=== PATIENT | female | born 1960 | race Caucasian/White ===

== ENCOUNTER 2017-08-22 05:04 | Emergency (ER) | payer MEDICAID ==
[~2017-08-22] VITALS: Ht 162.6 cm; Wt 143.8 kg
[~2017-08-22 05:04] MED LIST: ALBU0.5N2; ALPR2TAB2; AMLODIPINE BENAZEP PO; ASPI-247 PO; ASPI81CH43 GT; ATEN50TA PO; BUPR-40 PO; CARI-277 PO; CLOP75TA41 PO; FENO5TAB PO; FLUT250M2; GABA100C PO; IBUP200T2 PO; INSUINJ SC; METF1000 PO; NOR10T PO; NOVOLOG 70/30 SC; OMEP20TA44 PO; PANT1INJ3 IV; SUCR1TAB38 OR; VYTORIN 10/40 PO; ZOLP12.52 PO
[2017-08-22 05:13] VITALS: BP 143/73
[2017-08-22] MEDS ORDERED: SODIUM CHLORIDE 0.9% 1,000 ML IV ONE (06:38)
[2017-08-22] MEDS ORDERED: KETOROLAC TROMETH 60MG/2ML VIAL IM ONE (06:45)
[2017-08-22] MEDS ORDERED: KETOROLAC TROMETH 30 MG/ML 1ML VIAL IV ONE (07:00)
[2017-08-22 08:03] LABS: Basophils # (auto) 0.1 uL; Nucleated Red Blood Cells % 0.1 %
[2017-08-22 08:05] LABS: Basophils % (auto) 0.7 % (0.0-2.0); Eosinophils # (auto) 0.5 uL; Eosinophils % (auto) 4.9 % (0.0-7.0); Hematocrit 38.2 % (36.0-46.0); Hemoglobin 12.5 g/dL (12.2-16.2); Lymphocytes # (auto) 2.5 uL; Lymphocytes % (auto) 24.7 % (10.0-50.0); Mean Corpuscular Hemoglobin 27.2 pg (28.0-32.0); Mean Corpuscular Hgb Conc. 32.8 g/dL (32.0-36.0); Mean Corpuscular Volume 83.1 fL (80.0-100.0); Monocytes % (auto) 10.1 % (0.0-12.0); Neutrophils % (auto) 59.6 % (37.0-80.0); Platelet Count (auto) 361 10^3/uL (140-450); Red Cell Distribution Width 14.2 % (11.8-14.3); White Blood Cell 10.1 10^3/uL (4.4-10.8)
[2017-08-22 08:08] LABS: Partial Thromboplastin Time 26.5 sec (22.64-33.71); Prothrombin Time 10.9 sec (9.37-12.3)
[2017-08-22 08:35] LABS: Albumin 3.5 g/dL (3.4-5.0); BUN/Creatinine Ratio 15.5; Bilirubin, Total 0.3 mg/dL (0.2-1.0); Calcium 8.5 mg/dL (8.5-10.1); Potassium 5.1 mmol/L (3.5-5.1); Total Protein 7.4 g/dL (6.4-8.2)
== END 2017-08-22 08:39 | disposition home or self-care (01) ==
LOC: ER 05:05
DX: S39.012A Strain of muscle, fascia and tendon of lower back, initial encounter (principal); J45.909 Unspecified asthma, uncomplicated; E11.9 Type 2 diabetes mellitus without complications; I25.10 Atherosclerotic heart disease of native coronary artery without angina pectoris; K21.9 Gastro-esophageal reflux disease without esophagitis; E78.5 Hyperlipidemia, unspecified; I10 Essential (primary) hypertension; I25.2 Old myocardial infarction; G51.0 Bell's palsy; E66.01 Morbid (severe) obesity due to excess calories; G89.29 Other chronic pain; Z68.43 Body mass index [BMI] 50.0-59.9, adult; Z79.82 Long term (current) use of aspirin; Z98.84 Bariatric surgery status; Z98.61 Coronary angioplasty status; X58.XXXA Exposure to other specified factors, initial encounter; Y93.89 Activity, other specified; Y92.89 Other specified places as the place of occurrence of the external cause; Y99.8 Other external cause status
CPT/HCPCS: 36415; 74176; 80053; 85025; 85610; 85730; 96361; 96374; 99285; J1885; J7030; 82962

== ENCOUNTER 2018-06-02 15:17 | Emergency (ER) | payer OTHER ==
[~2018-06-02] VITALS: Ht 162.6 cm; Wt 131.5 kg
[~2018-06-02 15:17] MED LIST changes: -AMLODIPINE BENAZEP PO; -ASPI-247 PO; -ATEN50TA PO; -IBUP200T2 PO; -METF1000 PO; -OMEP20TA44 PO; -PANT1INJ3 IV
[2018-06-02 16:25] LABS: Basophils # (auto) 0.1 uL; Basophils % (auto) 1.2 % (0.0-2.0); Lymphocytes # (auto) 2.8 uL; Mean Corpuscular Hemoglobin 26.6 pg (28.0-32.0); Monocytes # (auto) 0.9 uL; Neutrophils # (auto) 4.6 uL; Nucleated Red Blood Cells % 0.1 %; White Blood Cell 8.9 10^3/uL (4.4-10.8)
[2018-06-02 16:27] LABS: Eosinophils # (auto) 0.4 uL; Hematocrit 40.1 % (36.0-46.0); Lymphocytes % (auto) 31.8 % (10.0-50.0); Mean Corpuscular Hgb Conc. 32.5 g/dL (32.0-36.0); Mean Corpuscular Volume 81.9 fL (80.0-100.0); Monocytes % (auto) 10.4 % (0.0-12.0); Neutrophils % (auto) 51.6 % (37.0-80.0); Platelet Count (auto) 344 10^3/uL (140-450); Red Cell Distribution Width 15.4 % (11.8-14.3)
[2018-06-02 16:37] LABS: Albumin 3.4 g/dL (3.4-5.0); Anion Gap 5 (5-15); Blood Urea Nitrogen 24 mg/dL (7-18); Calcium 8.6 mg/dL (8.5-10.1); Carbon Dioxide 26 mmol/L (21-32); Chloride 108 mmol/L (98-107); Glucose 127 mg/dL (74-106); Potassium 4.4 mmol/L (3.5-5.1); Sodium 139 mmol/L (136-145)
[2018-06-02 16:44] LABS: Alanine Aminotransferase 17 U/L (13-56); Alkaline Phosphatase 51 U/L (45-117); Aspartate Aminotransferase 13 U/L (15-37); Bilirubin, Total 0.2 mg/dL (0.2-1.0); GFR African American 36 mL/min; GFR Non-African American 30 mL/min; Total Protein 7.7 g/dL (6.4-8.2)
[2018-06-02 16:51] LABS: Urine Bacteria MANY /hpf (None Seen); Urine Blood Negative /uL (Negative); Urine WBC 29 /hpf (0 - 5)
[2018-06-02 16:58] VITALS: BP 133/74
== END 2018-06-02 17:44 | disposition home or self-care (01) ==
LOC: ER 15:17
DX: N39.0 Urinary tract infection, site not specified (principal); J45.909 Unspecified asthma, uncomplicated; E11.9 Type 2 diabetes mellitus without complications; K21.9 Gastro-esophageal reflux disease without esophagitis; E78.5 Hyperlipidemia, unspecified; I10 Essential (primary) hypertension; I25.2 Old myocardial infarction; I25.810 Atherosclerosis of coronary artery bypass graft(s) without angina pectoris; Z79.82 Long term (current) use of aspirin; Z79.4 Long term (current) use of insulin
CPT/HCPCS: 36415; 80053; 81001; 84484; 85025; 93005

== ENCOUNTER 2021-12-03 20:30 | Emergency (ER) | payer OTHER ==
[~2021-12-03] VITALS: Ht 162.6 cm; Wt 136.1 kg
[~2021-12-03 20:30] MED LIST changes: -BUPR-40 PO; +BUPR150T8 PO; -CLOP75TA41 PO; +CLOP75TA70 PO; +SUCR1TAB22 OR; -SUCR1TAB38 OR
[2021-12-03 20:37] VITALS: BP 140/47
== END 2021-12-03 22:31 | disposition left against medical advice (07) ==
LOC: ER 20:30
DX: M79.89 Other specified soft tissue disorders (principal); Z53.21 Procedure and treatment not carried out due to patient leaving prior to being seen by health care provider
CPT/HCPCS: 80048; 85379; 85730

== ENCOUNTER 2021-12-11 16:07 | Inpatient (IN) | payer OTHER ==
[~2021-12-11] VITALS: Ht 162.6 cm; Wt 147.1 kg
[2021-12-11 18:52] LABS: Basophils # (auto) 0.1 10 ^3/uL (0-0.2); Eosinophils # (auto) 0.3 10 ^3/uL (0-0.8); Lymphocytes # (auto) 2.1 10 ^3/uL (0.4-5.4)
[2021-12-11 18:54] LABS: Basophils % (auto) 0.8 % (0.0-2.0); Eosinophils % (auto) 2.5 % (0.0-7.0); Hematocrit 35.9 % (36.0-46.0); Hemoglobin 11.7 g/dL (12.2-16.2); Mean Corpuscular Hemoglobin 26.4 pg (28.0-32.0); Mean Corpuscular Hgb Conc. 32.7 g/dL (32.0-36.0); Mean Corpuscular Volume 80.6 fL (80.0-100.0); Neutrophils # (auto) 9.5 10 ^3/uL (1.6-8.6); Neutrophils % (auto) 72.7 % (37.0-80.0); Red Blood Cells 4.45 10^6/uL (4.0-5.20); White Blood Cell 13.1 10^3/uL (4.4-10.8)
[2021-12-11 19:08] LABS: Albumin 1.6 g/dL (3.4-5.0); Calcium 8.4 mg/dL (8.5-10.1); Magnesium 1.8 mg/dL (1.6-2.6); Potassium 4.5 mmol/L (3.5-5.1)
[2021-12-11 19:11] LABS: BUN/Creatinine Ratio 10.8; Bilirubin, Total 0.2 mg/dL (0.2-1.0); Total Protein 5.4 g/dL (6.4-8.2)
[2021-12-11 20:49] LABS: Lactic Acid w/Reflex 2.7 mmol/L (0.4-2.0)
[2021-12-11] MEDS ORDERED: FUROSEMIDE 20 MG/2 ML VIAL IV ONE (22:45)
[2021-12-11] MEDS ORDERED: DOCUSATE SOD 100 MG CAP PO PRN (22:45)
[2021-12-11] MEDS ORDERED: ACETAMINOPHEN 325 MG TAB PO PRN (22:45)
[2021-12-11] MEDS ORDERED: HYDROcodone-ACET 5/325MG TAB PO PRN (22:45)
[2021-12-11] MEDS ORDERED: DEXTROSE (50%) 50ML SYRG IV PRN (22:45)
[2021-12-11] MEDS ORDERED: cefTRIAXone 1GM/50ML D5W 50 ML IV ONE (22:45)
[2021-12-11] MEDS ORDERED: AZITHROMYCIN 500MG/ 250ML 250 ML IV ONE (22:45)
[2021-12-11] MEDS ORDERED: ONDANSETRON HCL 4 MG/2 ML VIAL IV PRN (22:45)
[2021-12-11] MEDS ORDERED: hydrALAZINE HCL 25 MG TAB PO PRN (22:45)
[2021-12-11] MEDS: LABETALOL HCL 5 MG/ML 4ML SYRINGE IV ONE ×2 (22:46→23:21)
[2021-12-11] MEDS ORDERED: hydrALAZINE HCL 20 MG/ML VL IV ONE (23:00)
[2021-12-11] MEDS ORDERED: NITROGLYCERIN 0.4 MG SL TAB SL PRN (23:45)
[2021-12-11] MEDS ORDERED: MORPHINE SULFATE INJECTION 2 MG/ML SYRG IV PRN (23:45)
[2021-12-12] MEDS ORDERED: cloNIDine HCL 0.1 MG TAB PO ONE (02:00)
[2021-12-12 02:34] VITALS: BP 156/91
[2021-12-12 05:01] VITALS: BP 156/91
[2021-12-12] MEDS ORDERED: GABA300C10 PO (05:41)
[2021-12-12] MEDS ORDERED: SIMV-13 PO (05:41)
[2021-12-12] MEDS ORDERED: INSU1INJ19 SC (05:41)
[2021-12-12] MEDS ORDERED: ALPR2TAB6 PO (05:41)
[2021-12-12] MEDS ORDERED: FLUT1AER6 IN (05:41)
[2021-12-12] MEDS ORDERED: NITR0.4S29 SL (05:41)
[2021-12-12] MEDS ORDERED: BUPR-60 PO (05:41)
[2021-12-12] MEDS ORDERED: ATEN50TA PO (05:41)
[2021-12-12] MEDS ORDERED: VENL-222 PO (05:41)
[2021-12-12] MEDS ORDERED: ALBU108A5 INH (05:41)
[2021-12-12] MEDS ORDERED: INSU100I27 SC (05:41)
[2021-12-12] MEDS ORDERED: FENO145T27 PO (05:41)
[2021-12-12] MEDS ORDERED: LID35TP TOP (05:41)
[2021-12-12] MEDS ORDERED: PERCOT PO (05:41)
[2021-12-12 05:44] VITALS: BP 141/64
[2021-12-12] MEDS: ACCU-CHEK COMFORT CURVE STRIP VI SCH ×4 (06:24→21:52)
[2021-12-12] MEDS: SODIUM CHLOR 0.9% PF (SALINE LOCK) 10ML VIAL/SYR IV SCH ×3 (06:24→21:52)
[2021-12-12] MEDS: InsuLIN REG 1unit/0.01ml Soln (100units/ml) SC SCH ×4 (06:36→22:39)
[2021-12-12 08:05] VITALS: BP 125/53
[2021-12-12 08:07] LABS: Basophils # (auto) 0.1 10 ^3/uL (0-0.2); Eosinophils # (auto) 0.2 10 ^3/uL (0-0.8); Eosinophils % (auto) 1.2 % (0.0-7.0); Monocytes # (auto) 0.9 10 ^3/uL (0-1.3); Red Blood Cells 4.38 10^6/uL (4.0-5.20)
[2021-12-12 08:09] LABS: Hematocrit 35.4 % (36.0-46.0); Hemoglobin 11.5 g/dL (12.2-16.2); Lymphocytes # (auto) 2.2 10 ^3/uL (0.4-5.4); Lymphocytes % (auto) 16.1 % (10.0-50.0); Mean Corpuscular Hemoglobin 26.2 pg (28.0-32.0); Mean Corpuscular Hgb Conc. 32.5 g/dL (32.0-36.0); Mean Corpuscular Volume 80.7 fL (80.0-100.0); Monocytes % (auto) 6.6 % (0.0-12.0); Neutrophils # (auto) 10.1 10 ^3/uL (1.6-8.6); Neutrophils % (auto) 75.1 % (37.0-80.0); Nucleated Red Blood Cells % 0.1 %; Red Cell Distribution Width 16.2 % (11.8-14.3); White Blood Cell 13.5 10^3/uL (4.4-10.8)
[2021-12-12 08:17] LABS: Albumin 1.5 g/dL (3.4-5.0); Calcium 8.2 mg/dL (8.5-10.1)
[2021-12-12 08:22] LABS: BUN/Creatinine Ratio 10.3; Bilirubin, Total 0.2 mg/dL (0.2-1.0); Total Protein 5.8 g/dL (6.4-8.2)
[2021-12-12] MEDS: amLODIPine BESYLATE 5 MG TAB PO SCH (10:28)
[2021-12-12] MEDS: ASPirin 81 mg TAB PO SCH (10:28)
[2021-12-12] MEDS: ZINC SULFATE 220mg CAP or TAB PO SCH (10:28)
[2021-12-12] MEDS: FUROSEMIDE 20 MG/2 ML VIAL IV SCH (10:29)
[2021-12-12] MEDS: ASCORBIC ACID 500 MG TAB PO SCH ×2 (10:29→22:38)
[2021-12-12 12:05] VITALS: BP 157/71
[2021-12-12 12:32] LABS: Cholesterol 232 mg/dL (< 200); HDL Cholesterol 41 mg/dL (40-59); LDL Cholesterol 164 mg/dL (< 100); Triglycerides 125 mg/dL (< 150)
[2021-12-12] MEDS: METOPROLOL TARTRATE 50 MG TAB PO SCH ×2 (14:04→22:38)
[2021-12-12 16:05] VITALS: BP 130/48
[2021-12-12] MEDS: cefTRIAXone 1GM/50ML D5W 50 ML IV SCH (20:56)
[2021-12-12] MEDS: AZITHROMYCIN 500MG/ 250ML 250 ML IV SCH (21:52)
[2021-12-12] MEDS: ATORVASTATIN 20 MG TAB PO SCH (22:35)
[2021-12-13 00:16] VITALS: BP 123/40
[2021-12-13] MEDS: SODIUM CHLOR 0.9% PF (SALINE LOCK) 10ML VIAL/SYR IV SCH ×3 (05:09→22:00)
[2021-12-13] MEDS: InsuLIN REG 1unit/0.01ml Soln (100units/ml) SC SCH ×4 (05:26→22:48)
[2021-12-13] MEDS: ACCU-CHEK COMFORT CURVE STRIP VI SCH ×4 (05:27→22:00)
[2021-12-13 06:19] VITALS: BP 142/56
[2021-12-13 08:05] VITALS: BP 136/51
[2021-12-13 09:23] LABS: BUN/Creatinine Ratio 11.2; Calcium 8.1 mg/dL (8.5-10.1); Phosphorus 5.8 mg/dL (2.5-4.90); Potassium 3.9 mmol/L (3.5-5.1); Uric Acid 7.9 mg/dL (2.6-6.0)
[2021-12-13] MEDS: FUROSEMIDE 20 MG/2 ML VIAL IV SCH (10:05)
[2021-12-13] MEDS: METOPROLOL TARTRATE 50 MG TAB PO SCH ×2 (10:06→22:59)
[2021-12-13] MEDS: amLODIPine BESYLATE 5 MG TAB PO SCH (10:06)
[2021-12-13] MEDS: ZINC SULFATE 220mg CAP or TAB PO SCH (10:06)
[2021-12-13] MEDS: ASPirin 81 mg TAB PO SCH (10:07)
[2021-12-13] MEDS: ASCORBIC ACID 500 MG TAB PO SCH ×2 (10:07→22:59)
[2021-12-13 12:05] VITALS: BP 132/60
[2021-12-13 16:10] VITALS: BP 131/55
[2021-12-13] MEDS: cefTRIAXone 1GM/50ML D5W 50 ML IV SCH (21:37)
[2021-12-13 21:55] VITALS: BP 149/53
[2021-12-13] MEDS: ATORVASTATIN 20 MG TAB PO SCH (22:54)
[2021-12-13] MEDS: AZITHROMYCIN 500MG/ 250ML 250 ML IV SCH (22:54)
[2021-12-14] MEDS: SODIUM CHLOR 0.9% PF (SALINE LOCK) 10ML VIAL/SYR IV SCH ×2 (05:11→14:09)
[2021-12-14 05:15] VITALS: BP 133/50
[2021-12-14] MEDS: InsuLIN REG 1unit/0.01ml Soln (100units/ml) SC SCH ×2 (06:35→12:04)
[2021-12-14] MEDS: ACCU-CHEK COMFORT CURVE STRIP VI SCH ×2 (06:35→11:30)
[2021-12-14 08:00] VITALS: BP_SYST 144; BP_SYST 158; BP_DIAS 69
[2021-12-14] MEDS: FUROSEMIDE 20 MG/2 ML VIAL IV SCH (11:38)
[2021-12-14] MEDS: ASPirin 81 mg TAB PO SCH (11:38)
[2021-12-14] MEDS: METOPROLOL TARTRATE 50 MG TAB PO SCH (11:38)
[2021-12-14] MEDS: ZINC SULFATE 220mg CAP or TAB PO SCH (11:38)
[2021-12-14] MEDS: amLODIPine BESYLATE 5 MG TAB PO SCH (11:39)
[2021-12-14] MEDS: ASCORBIC ACID 500 MG TAB PO SCH (11:39)
[2021-12-14] MEDS ORDERED: AZIT500T66 PO (11:41)
[2021-12-14] MEDS ORDERED: POTA10TA51 PO (11:41)
[2021-12-14] MEDS ORDERED: AMLO-496 PO (11:41)
[2021-12-14] MEDS ORDERED: FURO1TAB31 PO (11:41)
[2021-12-14] MEDS ORDERED: METO25TA5 PO (11:41)
[2021-12-14 12:00] VITALS: BP 146/62
[2021-12-14 13:10] VITALS: BP 146/62
== END 2021-12-14 16:00 | disposition home or self-care (01) | DRG 199 ==
LOC: ER 16:07 → TELE-WESTW 23:38
PROVIDERS: ADMIT Nurse Practitioner Family; ATTEND Family Medicine
DX: I16.0 Hypertensive urgency (principal); N17.9 Acute kidney failure, unspecified; J18.9 Pneumonia, unspecified organism; E87.2 Acidosis; E11.22 Type 2 diabetes mellitus with diabetic chronic kidney disease; I50.9 Heart failure, unspecified; Z68.44 Body mass index [BMI] 60.0-69.9, adult; I13.2 Hypertensive heart and chronic kidney disease with heart failure and with stage 5 chronic kidney disease, or end stage renal disease; D72.829 Elevated white blood cell count, unspecified; I25.10 Atherosclerotic heart disease of native coronary artery without angina pectoris; E11.40 Type 2 diabetes mellitus with diabetic neuropathy, unspecified; N18.5 Chronic kidney disease, stage 5; J45.909 Unspecified asthma, uncomplicated; K21.9 Gastro-esophageal reflux disease without esophagitis; G47.33 Obstructive sleep apnea (adult) (pediatric); E66.01 Morbid (severe) obesity due to excess calories; E78.00 Pure hypercholesterolemia, unspecified; E78.5 Hyperlipidemia, unspecified; Z20.822 Contact with and (suspected) exposure to COVID-19; Z79.4 Long term (current) use of insulin; I25.2 Old myocardial infarction; Z83.3 Family history of diabetes mellitus; Z95.5 Presence of coronary angioplasty implant and graft
CPT/HCPCS: 36415; 71045; 76775; 80048; 80053; 80061; 82306; 82533; 82962; 83605; 83735; 83880; 84100; 84443; 84484; 84550; 85025; 93005; 93306; 93970; 96365; 96366; 96368; 96375; G0378; J0696; J1815; J3490

== ENCOUNTER 2021-12-24 16:59 | Inpatient (IN) | payer OTHER ==
[~2021-12-24] VITALS: Ht 170.2 cm; Wt 136.5 kg
[~2021-12-24 16:59] MED LIST changes: -ALBU0.5N2; +ALBU108A5 INH; -ALPR2TAB2; +ALPR2TAB6 PO; +AMLO-496 PO; -ASPI81CH43 GT; +ATEN50TA PO; +AZIT500T66 PO; -CARI-277 PO; -CLOP75TA70 PO; +FENO145T27 PO; -FENO5TAB PO; +FLUT1AER6 IN; -FLUT250M2; +FURO1TAB31 PO; -GABA100C PO; +GABA300C10 PO; +INSU100I27 SC; +INSU1INJ19 SC; -INSUINJ SC; +LID35TP TOP; +METO25TA5 PO; +NITR0.4S29 SL; -NOR10T PO; -NOVOLOG 70/30 SC; +PERCOT PO; +POTA10TA51 PO; +SIMV-13 PO; -SUCR1TAB22 OR; +VENL-222 PO; -VYTORIN 10/40 PO; -ZOLP12.52 PO
[2021-12-24] MEDS ORDERED: ROCURONIUM 10MG/ML 10ML VIAL IV ONE ×2 (17:10→18:45)
[2021-12-24] MEDS ORDERED: MIDAZOLAM HCL 2MG/2ML 2ml VIAL (1mg/ml) ONE (17:11)
[2021-12-24] MEDS ORDERED: ETOMIDATE (2MG/ML) 20ML VIAL IV ONE ×2 (17:11→18:45)
[2021-12-24] MEDS ORDERED: PROPOFOL 100 ML IV ONE (17:11)
[2021-12-24 18:30] VITALS: BP_SYST 166; BP_SYST 175; BP_DIAS 102; BP_DIAS 74
[2021-12-24 18:39] LABS: Urine Bacteria NONE SEEN /hpf (None Seen); Urine Blood 1+ /uL (Negative); Urine Specific Gravity 1.014 (1.001-1.035); Urine WBC 1 /hpf (0 - 5)
[2021-12-24 18:48] LABS: Amphetamine Screen, Urine NEGATIVE (NEGATIVE); Barbiturate Scree,Urine NEGATIVE (NEGATIVE); Benzodiazephine Screen, Urine POSITIVE (NEGATIVE); Cannabinoid Screen, Urine NEGATIVE (NEGATIVE); Cocaine Screen, Urine NEGATIVE (NEGATIVE); Opiate Scree,Urine NEGATIVE (NEGATIVE); Phencyclidine Screen, Urine NEGATIVE (NEGATIVE)
[2021-12-24] MEDS: PROPOFOL 100 ML IV SCH ×2 (18:51→23:12)
[2021-12-24 19:23] LABS: Basophils # (auto) 0.1 10 ^3/uL (0-0.2); Hemoglobin 12.5 g/dL (12.2-16.2); Mean Corpuscular Hemoglobin 26.7 pg (28.0-32.0); Monocytes # (auto) 0.9 10 ^3/uL (0-1.3)
[2021-12-24 19:25] LABS: Basophils % (auto) 0.7 % (0.0-2.0); Eosinophils # (auto) 0.1 10 ^3/uL (0-0.8); Eosinophils % (auto) 0.5 % (0.0-7.0); Hematocrit 39.1 % (36.0-46.0); Lymphocytes # (auto) 1.2 10 ^3/uL (0.4-5.4); Mean Corpuscular Hgb Conc. 31.8 g/dL (32.0-36.0); Mean Corpuscular Volume 83.8 fL (80.0-100.0); Neutrophils # (auto) 15.4 10 ^3/uL (1.6-8.6); Neutrophils % (auto) 86.8 % (37.0-80.0); Red Blood Cells 4.67 10^6/uL (4.0-5.20); Red Cell Distribution Width 17.3 % (11.8-14.3); White Blood Cell 17.7 10^3/uL (4.4-10.8)
[2021-12-24] MEDS ORDERED: cefTRIAXone 1GM/50ML D5W 50 ML IV ONE (19:30)
[2021-12-24] MEDS ORDERED: AZITHROMYCIN 500MG/ 250ML 250 ML IV ONE (19:30)
[2021-12-24 19:34] LABS: Albumin 1.9 g/dL (3.4-5.0); Calcium 8.8 mg/dL (8.5-10.1); Potassium 5.3 mmol/L (3.5-5.1)
[2021-12-24 19:38] LABS: BUN/Creatinine Ratio 8.4; Bilirubin, Total 0.3 mg/dL (0.2-1.0)
[2021-12-24] MEDS ORDERED: DEXTROSE (50%) 50ML SYRG IV ONE (21:00)
[2021-12-24] MEDS ORDERED: ALBUMIN 25% 100 ML IV ONE (21:45)
[2021-12-24] MEDS: NOREPINEPHRINE 8 MG/250ML KIT 250 ML IV SCH (21:53)
[2021-12-24 21:57] VITALS: BP 109/42
[2021-12-24] MEDS ORDERED: DEXTROSE (50%) 50ML SYRG IV PRN (22:10)
[2021-12-24] MEDS ORDERED: ACETAMINOPHEN 650 MG RECT SUPP PR PRN (22:10)
[2021-12-24] MEDS ORDERED: ONDANSETRON HCL 4 MG/2 ML VIAL IV PRN (22:15)
[2021-12-24] MEDS ORDERED: SODIUM ZIRCONIUM CYCL 10 GM PAK GT ONE (22:15)
[2021-12-24] MEDS: HEPARIN SODIUM (PORCINE) 5000 UNITS/ML 1ML VIAL SC SCH (22:29)
[2021-12-24] MEDS ORDERED: SOD CHL 0.45% 1,000 ML IV SCH (23:00)
[2021-12-25] VITALS (75 sets, daily range): BP systolic 102–162; BP diastolic 38–75
[2021-12-25] MEDS ORDERED: MORPHINE SULFATE INJ 2 MG/ml SYRG IV PRN
[2021-12-25] MEDS ORDERED: NITROGLYCERIN 0.4 MG SL TAB SL PRN
[2021-12-25] MEDS: ACCU-CHEK COMFORT CURVE STRIP VI SCH ×6 (00:05→20:00)
[2021-12-25] MEDS: InsuLIN REG 1unit/0.01ml Soln (100units/ml) SC SCH ×6 (04:00→20:00)
[2021-12-25 04:07] LABS: Basophils # (auto) 0.1 10 ^3/uL (0-0.2); Eosinophils # (auto) 0.2 10 ^3/uL (0-0.8); Eosinophils % (auto) 1.5 % (0.0-7.0); Hematocrit 30.7 % (36.0-46.0); Lymphocytes # (auto) 2.1 10 ^3/uL (0.4-5.4); Lymphocytes % (auto) 16.1 % (10.0-50.0); Mean Corpuscular Hgb Conc. 32.7 g/dL (32.0-36.0); Mean Corpuscular Volume 82.7 fL (80.0-100.0); Monocytes # (auto) 1.1 10 ^3/uL (0-1.3); Monocytes % (auto) 8.5 % (0.0-12.0); Neutrophils # (auto) 9.6 10 ^3/uL (1.6-8.6); Neutrophils % (auto) 72.9 % (37.0-80.0); Nucleated Red Blood Cells % 0.1 %; Red Blood Cells 3.72 10^6/uL (4.0-5.20); Red Cell Distribution Width 17.1 % (11.8-14.3); White Blood Cell 13.2 10^3/uL (4.4-10.8)
[2021-12-25 04:51] LABS: Albumin 1.9 g/dL (3.4-5.0); BUN/Creatinine Ratio 7.8; Calcium 8.4 mg/dL (8.5-10.1); Potassium 4.9 mmol/L (3.5-5.1)
[2021-12-25 05:00] LABS: Bilirubin, Total 0.2 mg/dL (0.2-1.0); Total Protein 5.6 g/dL (6.4-8.2)
[2021-12-25] MEDS: FUROSEMIDE 40 MG/4 ML VIAL IV SCH (09:00)
[2021-12-25] MEDS ORDERED: cefTRIAXone 1GM/50ML D5W 50 ML IV SCH (09:00)
[2021-12-25] MEDS: PROPOFOL 100 ML IV SCH (09:00)
[2021-12-25] MEDS ORDERED: AZITHROMYCIN 500MG/ 250ML 250 ML IV SCH (10:00)
[2021-12-25 12:14] LABS: Sodium Urine 64 mmol/L (40-220)
[2021-12-25 12:16] LABS: Creatinine, Urine 43 mg/dL (30.0-125.0)
[2021-12-25] MEDS: HEPARIN SODIUM (PORCINE) 5000 UNITS/ML 1ML VIAL SC SCH ×2 (14:24→22:21)
[2021-12-25] MEDS: D5W/SOD CHL 0.45% 1,000 ML IV SCH (15:22)
[2021-12-25] MEDS: LINEZOLID 600MG/300ML 300 ML IV SCH (17:36)
[2021-12-25] MEDS: NOREPINEPHRINE 8 MG/250ML KIT 250 ML IV SCH (21:30)
[2021-12-25] MEDS ORDERED: MEROPENEM 1GM IVPB 100 ML IV SCH (22:00)
[2021-12-25] MEDS: MEROPENEM 500MG IVPB 50 ML IV SCH (22:19)
[2021-12-26] VITALS (92 sets, daily range): BP systolic 110–166; BP diastolic 39–69
[2021-12-26] MEDS: InsuLIN REG 1unit/0.01ml Soln (100units/ml) SC SCH ×6 (04:00→20:00)
[2021-12-26] MEDS: ACCU-CHEK COMFORT CURVE STRIP VI SCH ×6 (04:00→20:07)
[2021-12-26 05:36] LABS: Basophils # (auto) 0.1 10 ^3/uL (0-0.2); Basophils % (auto) 1.2 % (0.0-2.0); Eosinophils # (auto) 0.3 10 ^3/uL (0-0.8); Eosinophils % (auto) 2.7 % (0.0-7.0); Hematocrit 31.8 % (36.0-46.0); Hemoglobin 10.8 g/dL (12.2-16.2); Lymphocytes # (auto) 1.2 10 ^3/uL (0.4-5.4); Lymphocytes % (auto) 9.7 % (10.0-50.0); Mean Corpuscular Hemoglobin 28.1 pg (28.0-32.0); Mean Corpuscular Hgb Conc. 34.1 g/dL (32.0-36.0); Mean Corpuscular Volume 82.4 fL (80.0-100.0); Monocytes # (auto) 1.1 10 ^3/uL (0-1.3); Monocytes % (auto) 9.1 % (0.0-12.0); Neutrophils # (auto) 9.5 10 ^3/uL (1.6-8.6); Neutrophils % (auto) 77.3 % (37.0-80.0); Red Blood Cells 3.86 10^6/uL (4.0-5.20); White Blood Cell 12.3 10^3/uL (4.4-10.8)
[2021-12-26] MEDS: LINEZOLID 600MG/300ML 300 ML IV SCH ×2 (06:19→17:32)
[2021-12-26 06:27] LABS: Albumin 1.7 g/dL (3.4-5.0); Calcium 8.1 mg/dL (8.5-10.1); Potassium 4.6 mmol/L (3.5-5.1)
[2021-12-26] MEDS: HEPARIN SODIUM (PORCINE) 5000 UNITS/ML 1ML VIAL SC SCH ×2 (06:28→22:19)
[2021-12-26 06:30] LABS: Bilirubin, Direct 0.1 mg/dL (0-0.2); Bilirubin, Total 0.4 mg/dL (0.2-1.0); Phosphorus 6.2 mg/dL (2.5-4.90); Total Protein 5.8 g/dL (6.4-8.2); Uric Acid 9.6 mg/dL (2.6-6.0)
[2021-12-26] MEDS: FAMOTIDINE (10MG/ML) 2ML VL IV SCH (08:55)
[2021-12-26] MEDS: FUROSEMIDE 40 MG/4 ML VIAL IV SCH (08:56)
[2021-12-26] MEDS: MEROPENEM 500MG IVPB 50 ML IV SCH ×2 (08:56→22:17)
[2021-12-26] MEDS: NOREPINEPHRINE 8 MG/250ML KIT 250 ML IV SCH (09:01)
[2021-12-26] MEDS ORDERED: ACETAMINOPHEN 650 mg PER 20.3 mL UD GT PRN (11:00)
[2021-12-26] MEDS: D5W/SOD CHL 0.45% 1,000 ML IV SCH ×2 (11:15→18:59)
[2021-12-26] MEDS: PROPOFOL 100 ML IV SCH (12:45)
[2021-12-27] VITALS (83 sets, daily range): BP systolic 103–156; BP diastolic 41–69
[2021-12-27] MEDS: ACCU-CHEK COMFORT CURVE STRIP VI SCH ×6 (00:23→20:20)
[2021-12-27] MEDS: InsuLIN REG 1unit/0.01ml Soln (100units/ml) SC SCH ×6 (04:00→20:22)
[2021-12-27] MEDS: LINEZOLID 600MG/300ML 300 ML IV SCH ×2 (06:24→18:40)
[2021-12-27] MEDS: PROPOFOL 100 ML IV SCH (09:17)
[2021-12-27] MEDS: FUROSEMIDE 40 MG/4 ML VIAL IV SCH (10:29)
[2021-12-27] MEDS: MEROPENEM 500MG IVPB 50 ML IV SCH ×2 (10:30→22:45)
[2021-12-27] MEDS: HEPARIN SODIUM (PORCINE) 5000 UNITS/ML 1ML VIAL SC SCH ×2 (10:30→22:46)
[2021-12-27 12:25] LABS: Basophils # (auto) 0.3 10 ^3/uL (0-0.2); Basophils % (auto) 2.5 % (0.0-2.0); Eosinophils # (auto) 0.5 10 ^3/uL (0-0.8); Eosinophils % (auto) 4.3 % (0.0-7.0); Hemoglobin 10.1 g/dL (12.2-16.2); Lymphocytes # (auto) 1.3 10 ^3/uL (0.4-5.4); Lymphocytes % (auto) 12.1 % (10.0-50.0); Mean Corpuscular Hemoglobin 27.1 pg (28.0-32.0); Mean Corpuscular Hgb Conc. 32.7 g/dL (32.0-36.0); Mean Corpuscular Volume 82.9 fL (80.0-100.0); Monocytes # (auto) 0.9 10 ^3/uL (0-1.3); Monocytes % (auto) 8.5 % (0.0-12.0); Neutrophils # (auto) 7.7 10 ^3/uL (1.6-8.6); Neutrophils % (auto) 72.6 % (37.0-80.0); Nucleated Red Blood Cells % 0.1 %; Red Blood Cells 3.74 10^6/uL (4.0-5.20); White Blood Cell 10.6 10^3/uL (4.4-10.8)
[2021-12-27 12:28] LABS: Calcium 8.6 mg/dL (8.5-10.1)
[2021-12-27 12:31] LABS: BUN/Creatinine Ratio 7.9
[2021-12-27] MEDS: D5W/SOD CHL 0.45% 1,000 ML IV SCH (18:50)
[2021-12-28] VITALS (88 sets, daily range): BP systolic 107–190; BP diastolic 46–99
[2021-12-28] MEDS: InsuLIN REG 1unit/0.01ml Soln (100units/ml) SC SCH ×6 (00:36→20:49)
[2021-12-28] MEDS: ACCU-CHEK COMFORT CURVE STRIP VI SCH ×6 (00:40→20:47)
[2021-12-28 05:09] LABS: Basophils # (auto) 0.2 10 ^3/uL (0-0.2); Basophils % (auto) 1.7 % (0.0-2.0); Eosinophils # (auto) 0.6 10 ^3/uL (0-0.8); Eosinophils % (auto) 6.1 % (0.0-7.0); Hematocrit 32.3 % (36.0-46.0); Hemoglobin 10.8 g/dL (12.2-16.2); Lymphocytes # (auto) 1.6 10 ^3/uL (0.4-5.4); Lymphocytes % (auto) 15.8 % (10.0-50.0); Mean Corpuscular Hemoglobin 27.7 pg (28.0-32.0); Mean Corpuscular Hgb Conc. 33.5 g/dL (32.0-36.0); Mean Corpuscular Volume 82.7 fL (80.0-100.0); Monocytes % (auto) 9.4 % (0.0-12.0); Neutrophils # (auto) 6.8 10 ^3/uL (1.6-8.6); Nucleated Red Blood Cells % 0.2 %; Red Blood Cells 3.91 10^6/uL (4.0-5.20); Red Cell Distribution Width 16.8 % (11.8-14.3); White Blood Cell 10.1 10^3/uL (4.4-10.8)
[2021-12-28 05:29] LABS: Potassium 3.9 mmol/L (3.5-5.1)
[2021-12-28 05:44] LABS: BUN/Creatinine Ratio 7.7; Calcium 8.2 mg/dL (8.5-10.1)
[2021-12-28] MEDS: hydrALAZINE HCL 20 MG/ML VL IV PRN ×3 (06:14→23:55)
[2021-12-28] MEDS: LINEZOLID 600MG/300ML 300 ML IV SCH ×2 (06:14→17:33)
[2021-12-28] MEDS: PROPOFOL 100 ML IV SCH (06:45)
[2021-12-28] MEDS: NOREPINEPHRINE 8 MG/250ML KIT 250 ML IV SCH ×2 (08:07→21:30)
[2021-12-28] MEDS: FAMOTIDINE (10MG/ML) 2ML VL IV SCH (09:40)
[2021-12-28] MEDS: MEROPENEM 500MG IVPB 50 ML IV SCH ×2 (09:40→22:17)
[2021-12-28] MEDS: FUROSEMIDE 40 MG/4 ML VIAL IV SCH (09:40)
[2021-12-28] MEDS: HEPARIN SODIUM (PORCINE) 5000 UNITS/ML 1ML VIAL SC SCH ×2 (09:43→22:15)
[2021-12-28] MEDS: D5W/SOD CHL 0.45% 1,000 ML IV SCH (17:33)
[2021-12-29] VITALS (92 sets, daily range): BP systolic 120–198; BP diastolic 44–82
[2021-12-29] MEDS: ACCU-CHEK COMFORT CURVE STRIP VI SCH ×6 (00:08→20:19)
[2021-12-29] MEDS: InsuLIN REG 1unit/0.01ml Soln (100units/ml) SC SCH ×6 (00:32→20:22)
[2021-12-29] MEDS: PROPOFOL 100 ML IV SCH (03:45)
[2021-12-29 05:14] LABS: Basophils # (auto) 0.1 10 ^3/uL (0-0.2); Eosinophils # (auto) 0.6 10 ^3/uL (0-0.8); Eosinophils % (auto) 6.3 % (0.0-7.0); Hematocrit 30.6 % (36.0-46.0); Hemoglobin 10.3 g/dL (12.2-16.2); Lymphocytes # (auto) 1.7 10 ^3/uL (0.4-5.4); Lymphocytes % (auto) 17.7 % (10.0-50.0); Mean Corpuscular Hemoglobin 28.1 pg (28.0-32.0); Mean Corpuscular Hgb Conc. 33.8 g/dL (32.0-36.0); Mean Corpuscular Volume 83.2 fL (80.0-100.0); Monocytes # (auto) 1.1 10 ^3/uL (0-1.3); Neutrophils # (auto) 6.1 10 ^3/uL (1.6-8.6); Nucleated Red Blood Cells % 0.1 %; Red Blood Cells 3.67 10^6/uL (4.0-5.20); Red Cell Distribution Width 17.1 % (11.8-14.3); White Blood Cell 9.5 10^3/uL (4.4-10.8)
[2021-12-29] MEDS: LINEZOLID 600MG/300ML 300 ML IV SCH ×2 (05:19→18:09)
[2021-12-29 05:32] LABS: Calcium 8.1 mg/dL (8.5-10.1); Potassium 3.7 mmol/L (3.5-5.1)
[2021-12-29 05:35] LABS: BUN/Creatinine Ratio 8.3
[2021-12-29] MEDS: hydrALAZINE HCL 20 MG/ML VL IV PRN ×3 (06:20→22:51)
[2021-12-29] MEDS: MEROPENEM 500MG IVPB 50 ML IV SCH ×2 (10:32→22:14)
[2021-12-29] MEDS: FUROSEMIDE 40 MG/4 ML VIAL IV SCH ×2 (10:33→22:14)
[2021-12-29] MEDS: HEPARIN SODIUM (PORCINE) 5000 UNITS/ML 1ML VIAL SC SCH ×2 (10:34→22:32)
[2021-12-29] MEDS ORDERED: CLINIMIX PER PHARMACY 0 ML IV SCH (12:45)
[2021-12-29] MEDS ORDERED: DEXTROSE (50%) 50ML SYRG IV SCH (14:30)
[2021-12-29] MEDS: D5W/SOD CHL 0.45% 1,000 ML IV SCH (19:15)
[2021-12-29] MEDS ORDERED: AMINO ACID INFUSION IN D10W 1,000 ML IV NR (20:00)
[2021-12-29] MEDS: NOREPINEPHRINE 8 MG/250ML KIT 250 ML IV SCH (21:30)
[2021-12-30] VITALS (68 sets, daily range): BP systolic 96–193; BP diastolic 39–80
[2021-12-30] MEDS ORDERED: ACCU-CHEK COMFORT CURVE STRIP VI SCH
[2021-12-30] MEDS ORDERED: InsuLIN REG 1unit/0.01ml Soln (100units/ml) SC SCH
[2021-12-30] MEDS ORDERED: DEXTROSE (50%) 50ML SYRG IV SCH
[2021-12-30] MEDS: ACCU-CHEK COMFORT CURVE STRIP VI SCH ×6 (00:16→20:04)
[2021-12-30] MEDS: InsuLIN REG 1unit/0.01ml Soln (100units/ml) SC SCH ×6 (00:20→20:13)
[2021-12-30] MEDS: PROPOFOL 100 ML IV SCH ×2 (00:45→21:45)
[2021-12-30] MEDS ORDERED: dilTIAZem 25 MG/5 ML VIAL IV ONE (03:00)
[2021-12-30] MEDS: LINEZOLID 600MG/300ML 300 ML IV SCH ×2 (05:19→19:25)
[2021-12-30] MEDS: hydrALAZINE HCL 20 MG/ML VL IV PRN ×3 (05:26→23:50)
[2021-12-30 05:31] LABS: Basophils # (auto) 0.1 10 ^3/uL (0-0.2); Basophils % (auto) 1.2 % (0.0-2.0); Eosinophils # (auto) 0.4 10 ^3/uL (0-0.8); Eosinophils % (auto) 4.7 % (0.0-7.0); Hematocrit 30.7 % (36.0-46.0); Hemoglobin 10.2 g/dL (12.2-16.2); Lymphocytes # (auto) 1.7 10 ^3/uL (0.4-5.4); Lymphocytes % (auto) 18.2 % (10.0-50.0); Mean Corpuscular Hemoglobin 27.6 pg (28.0-32.0); Mean Corpuscular Hgb Conc. 33.1 g/dL (32.0-36.0); Mean Corpuscular Volume 83.5 fL (80.0-100.0); Monocytes # (auto) 1.1 10 ^3/uL (0-1.3); Monocytes % (auto) 12.5 % (0.0-12.0); Neutrophils # (auto) 5.8 10 ^3/uL (1.6-8.6); Neutrophils % (auto) 63.4 % (37.0-80.0); Red Blood Cells 3.67 10^6/uL (4.0-5.20); Red Cell Distribution Width 16.5 % (11.8-14.3); White Blood Cell 9.1 10^3/uL (4.4-10.8)
[2021-12-30 05:40] LABS: Albumin 1.6 g/dL (3.4-5.0); Calcium 7.9 mg/dL (8.5-10.1); Potassium 3.6 mmol/L (3.5-5.1)
[2021-12-30 05:43] LABS: BUN/Creatinine Ratio 8.3; Bilirubin, Total 0.3 mg/dL (0.2-1.0); Phosphorus 4.7 mg/dL (2.5-4.90); Total Protein 5.5 g/dL (6.4-8.2)
[2021-12-30] MEDS: FAMOTIDINE (10MG/ML) 2ML VL IV SCH (10:21)
[2021-12-30] MEDS: FUROSEMIDE 40 MG/4 ML VIAL IV SCH ×2 (10:22→20:08)
[2021-12-30] MEDS: HEPARIN SODIUM (PORCINE) 5000 UNITS/ML 1ML VIAL SC SCH ×2 (10:23→20:07)
[2021-12-30] MEDS: MEROPENEM 500MG IVPB 50 ML IV SCH ×2 (10:41→20:04)
[2021-12-30] MEDS ORDERED: hydrALAZINE HCL 20 MG/ML VL IV ONE (14:30)
[2021-12-30] MEDS ORDERED: NITROGLYCERIN 0.4 MG SL TAB SL SCH (14:45)
[2021-12-30] MEDS ORDERED: LIDOCAINE HCL 5 % TOP OINT 35 GM TOP PRN (14:45)
[2021-12-30] MEDS ORDERED: OXYCODONE W/ ACETAMINOPHEN 5/325MG TABLET PO PRN (17:00)
[2021-12-30] MEDS ORDERED: ALPRAZolam 0.5 MG TAB PO PRN (17:00)
[2021-12-30] MEDS: POTASSIUM CHL 10 Meq TABLET PO SCH (17:11)
[2021-12-30] MEDS ORDERED: ALPRAZolam 0.5 MG TAB PO SCH (18:00)
[2021-12-30] MEDS ORDERED: OXYCODONE W/ ACETAMINOPHEN 5/325MG TABLET PO SCH (18:00)
[2021-12-30] MEDS ORDERED: AMINO ACID INFUSION IN D10W 1,000 ML IV NR (20:00)
[2021-12-30] MEDS ORDERED: TPN PER PHARMACY IV NR ×10 (20:00)
[2021-12-30] MEDS: GABAPENTIN 300 MG CAP PO SCH (20:08)
[2021-12-30] MEDS: ATORVASTATIN 20 MG TAB PO SCH (20:10)
[2021-12-30] MEDS ORDERED: METOPROLOL TARTRATE 25 MG TAB PO SCH (22:00)
[2021-12-31] VITALS (51 sets, daily range): BP systolic 101–184; BP diastolic 45–118
[2021-12-31] MEDS: NOREPINEPHRINE 8 MG/250ML KIT 250 ML IV SCH ×2 (00:04→21:30)
[2021-12-31] MEDS: InsuLIN REG 1unit/0.01ml Soln (100units/ml) SC SCH ×5 (00:05→17:05)
[2021-12-31] MEDS: ACCU-CHEK COMFORT CURVE STRIP VI SCH ×6 (00:05→17:05)
[2021-12-31] MEDS: LINEZOLID 600MG/300ML 300 ML IV SCH ×2 (05:40→17:04)
[2021-12-31] MEDS: hydrALAZINE HCL 20 MG/ML VL IV PRN ×2 (06:51→15:06)
[2021-12-31] MEDS: VENLAFAXINE HCL 37.5MG TABLET PO SCH (07:00)
[2021-12-31] MEDS: ATENOLOL 50 MG TAB PO SCH (08:59)
[2021-12-31] MEDS: POTASSIUM CHL 10 Meq TABLET PO SCH (08:59)
[2021-12-31] MEDS: FUROSEMIDE 40 MG/4 ML VIAL IV SCH (09:00)
[2021-12-31] MEDS: MEROPENEM 500MG IVPB 50 ML IV SCH ×2 (09:00→21:41)
[2021-12-31] MEDS: FENOFIBRATE 145 MG PO SCH (09:00)
[2021-12-31] MEDS: amLODIPine BESYLATE 5 MG TAB PO SCH (09:01)
[2021-12-31] MEDS: GABAPENTIN 300 MG CAP PO SCH ×2 (09:01→21:40)
[2021-12-31] MEDS: HEPARIN SODIUM (PORCINE) 5000 UNITS/ML 1ML VIAL SC SCH ×2 (09:22→21:50)
[2021-12-31 10:30] LABS: Albumin 1.5 g/dL (3.4-5.0); Calcium 7.9 mg/dL (8.5-10.1); Magnesium 1.8 mg/dL (1.6-2.6); Potassium 3.3 mmol/L (3.5-5.1)
[2021-12-31 10:35] LABS: BUN/Creatinine Ratio 9.8; Bilirubin, Total 0.3 mg/dL (0.2-1.0); Phosphorus 3.8 mg/dL (2.5-4.90); Total Protein 5.1 g/dL (6.4-8.2)
[2021-12-31] MEDS ORDERED: DEXTROSE (50%) 50ML SYRG IV PRN (12:00)
[2021-12-31] MEDS: POTASSIUM CHL 20MEQ/100ML 100 ML IV SCH ×2 (12:40→12:41)
[2021-12-31] MEDS: PROPOFOL 100 ML IV SCH (17:10)
[2021-12-31] MEDS: ATORVASTATIN 20 MG TAB PO SCH (21:40)
[2021-12-31] MEDS: AMINO ACID INFUSION IN D10W 1,000 ML IV NR (21:58)
[2021-12-31] MEDS ORDERED: FUROSEMIDE 40 MG/4 ML VIAL IV SCH (22:00)
[2022-01-01] VITALS (42 sets, daily range): BP systolic 110–189; BP diastolic 52–81
[2022-01-01] MEDS: hydrALAZINE HCL 20 MG/ML VL IV PRN ×3 (00:08→21:32)
[2022-01-01] MEDS: ACCU-CHEK COMFORT CURVE STRIP VI SCH ×5 (00:08→23:47)
[2022-01-01] MEDS: InsuLIN REG 1unit/0.01ml Soln (100units/ml) SC SCH ×5 (00:13→23:48)
[2022-01-01 04:49] LABS: Albumin 1.8 g/dL (3.4-5.0); BUN/Creatinine Ratio 9.6; Calcium 8.4 mg/dL (8.5-10.1); Magnesium 1.7 mg/dL (1.6-2.6); Potassium 3.8 mmol/L (3.5-5.1)
[2022-01-01 04:52] LABS: Bilirubin, Total 0.3 mg/dL (0.2-1.0); Phosphorus 3.8 mg/dL (2.5-4.90); Total Protein 5.8 g/dL (6.4-8.2)
[2022-01-01] MEDS: LINEZOLID 600MG/300ML 300 ML IV SCH ×2 (06:11→19:23)
[2022-01-01] MEDS: VENLAFAXINE HCL 37.5MG TABLET PO SCH (07:00)
[2022-01-01] MEDS: FENOFIBRATE 145 MG PO SCH (10:00)
[2022-01-01] MEDS: MEROPENEM 500MG IVPB 50 ML IV SCH ×2 (10:01→21:32)
[2022-01-01] MEDS: FAMOTIDINE (10MG/ML) 2ML VL IV SCH (10:01)
[2022-01-01] MEDS: ALBUMIN 25% 100 ML IV SCH ×2 (10:01→21:32)
[2022-01-01] MEDS: ATENOLOL 50 MG TAB PO SCH (10:02)
[2022-01-01] MEDS: GABAPENTIN 300 MG CAP PO SCH ×2 (10:02→21:32)
[2022-01-01] MEDS: POTASSIUM CHL 10 Meq TABLET PO SCH (10:02)
[2022-01-01] MEDS: amLODIPine BESYLATE 5 MG TAB PO SCH (10:02)
[2022-01-01] MEDS: HEPARIN SODIUM (PORCINE) 5000 UNITS/ML 1ML VIAL SC SCH ×2 (10:06→21:34)
[2022-01-01] MEDS: BUMETANIDE INJECTION 12.5 MG in GIVE UN-DILUTED 0 ML IV SCH (10:12)
[2022-01-01] MEDS: PROPOFOL 100 ML IV SCH (14:23)
[2022-01-01] MEDS: AMINO ACID INFUSION IN D10W 1,000 ML IV NR (20:32)
[2022-01-01] MEDS: NOREPINEPHRINE 8 MG/250ML KIT 250 ML IV SCH (20:33)
[2022-01-01] MEDS: ATORVASTATIN 20 MG TAB PO SCH (21:32)
[2022-01-02] VITALS (53 sets, daily range): BP systolic 138–180; BP diastolic 53–123
[2022-01-02] MEDS: hydrALAZINE HCL 20 MG/ML VL IV PRN ×2 (03:24→21:09)
[2022-01-02 04:01] LABS: Potassium 3.3 mmol/L (3.5-5.1)
[2022-01-02 04:08] LABS: BUN/Creatinine Ratio 11.2; Bilirubin, Total 0.4 mg/dL (0.2-1.0); Calcium 7.9 mg/dL (8.5-10.1); Magnesium 1.8 mg/dL (1.6-2.6); Phosphorus 3.4 mg/dL (2.5-4.90); Total Protein 5.2 g/dL (6.4-8.2)
[2022-01-02] MEDS: ACCU-CHEK COMFORT CURVE STRIP VI SCH ×4 (05:52→23:32)
[2022-01-02] MEDS: LINEZOLID 600MG/300ML 300 ML IV SCH ×2 (05:52→17:32)
[2022-01-02] MEDS: InsuLIN REG 1unit/0.01ml Soln (100units/ml) SC SCH ×4 (05:53→23:31)
[2022-01-02] MEDS: MEROPENEM 500MG IVPB 50 ML IV SCH ×2 (10:00→22:01)
[2022-01-02] MEDS: POTASSIUM CHL 10 Meq TABLET PO SCH (10:00)
[2022-01-02] MEDS: ALBUMIN 25% 100 ML IV SCH ×2 (10:00→22:01)
[2022-01-02] MEDS: VENLAFAXINE HCL 37.5mg XR cap PO SCH (10:00)
[2022-01-02] MEDS: GABAPENTIN 300 MG CAP PO SCH ×2 (10:02→22:01)
[2022-01-02] MEDS: ATENOLOL 50 MG TAB PO SCH (10:04)
[2022-01-02] MEDS: amLODIPine BESYLATE 5 MG TAB PO SCH (10:04)
[2022-01-02] MEDS: HEPARIN SODIUM (PORCINE) 5000 UNITS/ML 1ML VIAL SC SCH ×2 (10:06→22:04)
[2022-01-02] MEDS: FENOFIBRATE 145 MG PO SCH (12:06)
[2022-01-02] MEDS: POTASSIUM CHL 20MEQ/100ML 100 ML IV SCH ×2 (12:31→14:47)
[2022-01-02] MEDS: PROPOFOL 100 ML IV SCH (12:45)
[2022-01-02] MEDS: BUMETANIDE INJECTION 12.5 MG in GIVE UN-DILUTED 0 ML IV SCH (16:24)
[2022-01-02] MEDS: AMINO ACID INFUSION IN D10W 1,000 ML IV NR (21:09)
[2022-01-02] MEDS: NOREPINEPHRINE 8 MG/250ML KIT 250 ML IV SCH (21:30)
[2022-01-02] MEDS: ATORVASTATIN 20 MG TAB PO SCH (22:02)
[2022-01-03] VITALS (58 sets, daily range): BP systolic 130–178; BP diastolic 35–70
[2022-01-03 04:06] LABS: Albumin 2.5 g/dL (3.4-5.0); Calcium 8.3 mg/dL (8.5-10.1); Potassium 3.2 mmol/L (3.5-5.1)
[2022-01-03 04:10] LABS: BUN/Creatinine Ratio 11.2; Magnesium 1.7 mg/dL (1.6-2.6)
[2022-01-03 04:12] LABS: Bilirubin, Total 0.5 mg/dL (0.2-1.0); Phosphorus 3.4 mg/dL (2.5-4.90); Total Protein 5.4 g/dL (6.4-8.2)
[2022-01-03] MEDS: ACCU-CHEK COMFORT CURVE STRIP VI SCH ×3 (05:44→17:35)
[2022-01-03] MEDS: InsuLIN REG 1unit/0.01ml Soln (100units/ml) SC SCH ×3 (05:44→17:37)
[2022-01-03] MEDS: LINEZOLID 600MG/300ML 300 ML IV SCH ×2 (05:44→17:52)
[2022-01-03] MEDS: hydrALAZINE HCL 20 MG/ML VL IV PRN (05:46)
[2022-01-03] MEDS: POTASSIUM CHL 20MEQ/100ML 100 ML IV SCH ×2 (09:38→11:55)
[2022-01-03] MEDS: FAMOTIDINE (10MG/ML) 2ML VL IV SCH (09:38)
[2022-01-03] MEDS: ATENOLOL 50 MG TAB PO SCH (09:39)
[2022-01-03] MEDS: amLODIPine BESYLATE 5 MG TAB PO SCH (09:40)
[2022-01-03] MEDS: GABAPENTIN 300 MG CAP PO SCH ×2 (09:41→22:11)
[2022-01-03] MEDS: POTASSIUM CHL 10 Meq TABLET PO SCH (09:41)
[2022-01-03] MEDS: MEROPENEM 500MG IVPB 50 ML IV SCH ×2 (09:41→22:11)
[2022-01-03] MEDS: PROPOFOL 100 ML IV SCH (09:45)
[2022-01-03] MEDS: HEPARIN SODIUM (PORCINE) 5000 UNITS/ML 1ML VIAL SC SCH ×2 (09:56→22:24)
[2022-01-03] MEDS: FENOFIBRATE 145 MG PO SCH (10:00)
[2022-01-03] MEDS: VENLAFAXINE HCL 37.5mg XR cap PO SCH (10:00)
[2022-01-03] MEDS: BUMETANIDE INJECTION 12.5 MG in GIVE UN-DILUTED 0 ML IV SCH (18:50)
[2022-01-03] MEDS: AMINO ACID INFUSION IN D10W 1,000 ML IV NR (20:22)
[2022-01-03] MEDS: ATORVASTATIN 20 MG TAB PO SCH (22:11)
[2022-01-04] VITALS (53 sets, daily range): BP systolic 133–182; BP diastolic 54–75
[2022-01-04] MEDS: ACCU-CHEK COMFORT CURVE STRIP VI SCH ×4 (00:24→18:17)
[2022-01-04] MEDS: InsuLIN REG 1unit/0.01ml Soln (100units/ml) SC SCH ×4 (00:26→18:28)
[2022-01-04 04:40] LABS: Basophils # (auto) 0.1 10 ^3/uL (0-0.2); Eosinophils # (auto) 0.5 10 ^3/uL (0-0.8); Eosinophils % (auto) 4.4 % (0.0-7.0); Hematocrit 32.2 % (36.0-46.0); Hemoglobin 10.9 g/dL (12.2-16.2); Lymphocytes # (auto) 1.7 10 ^3/uL (0.4-5.4); Lymphocytes % (auto) 16.2 % (10.0-50.0); Mean Corpuscular Hemoglobin 27.5 pg (28.0-32.0); Mean Corpuscular Hgb Conc. 33.8 g/dL (32.0-36.0); Mean Corpuscular Volume 81.3 fL (80.0-100.0); Monocytes # (auto) 1.3 10 ^3/uL (0-1.3); Monocytes % (auto) 12.8 % (0.0-12.0); Neutrophils # (auto) 6.8 10 ^3/uL (1.6-8.6); Neutrophils % (auto) 65.6 % (37.0-80.0); Red Blood Cells 3.97 10^6/uL (4.0-5.20); Red Cell Distribution Width 16.1 % (11.8-14.3); White Blood Cell 10.4 10^3/uL (4.4-10.8)
[2022-01-04 04:56] LABS: Albumin 2.2 g/dL (3.4-5.0); Potassium 3.3 mmol/L (3.5-5.1)
[2022-01-04 04:58] LABS: BUN/Creatinine Ratio 11.9; Calcium 8.3 mg/dL (8.5-10.1); Magnesium 1.8 mg/dL (1.6-2.6); Phosphorus 3.2 mg/dL (2.5-4.90)
[2022-01-04] MEDS: LINEZOLID 600MG/300ML 300 ML IV SCH ×2 (06:23→18:29)
[2022-01-04] MEDS: PROPOFOL 100 ML IV SCH (08:00)
[2022-01-04] MEDS: POTASSIUM CHL 20MEQ/100ML 100 ML IV SCH ×2 (09:12→10:45)
[2022-01-04] MEDS: GABAPENTIN 300 MG CAP PO SCH ×2 (09:45→21:39)
[2022-01-04] MEDS: amLODIPine BESYLATE 5 MG TAB PO SCH (09:46)
[2022-01-04] MEDS: ATENOLOL 50 MG TAB PO SCH (09:46)
[2022-01-04] MEDS: HEPARIN SODIUM (PORCINE) 5000 UNITS/ML 1ML VIAL SC SCH ×2 (09:47→21:40)
[2022-01-04] MEDS: FENOFIBRATE 145 MG PO SCH (09:48)
[2022-01-04] MEDS: POTASSIUM CHL 10 Meq TABLET PO SCH (09:48)
[2022-01-04] MEDS: VENLAFAXINE HCL 37.5mg XR cap PO SCH (09:49)
[2022-01-04] MEDS: MEROPENEM 500MG IVPB 50 ML IV SCH ×2 (10:00→21:40)
[2022-01-04] MEDS ORDERED: POTASSIUM CHL 20MEQ/100ML 100 ML IV SCH (10:45)
[2022-01-04] MEDS: MAGNESIUM SULFATE 1GM/100ML 100 ML IV SCH ×2 (13:52→16:00)
[2022-01-04] MEDS ORDERED: MAGNESIUM SULFATE 1GM/100ML 100 ML IV SCH (16:00)
[2022-01-04] MEDS ORDERED: CLINIMIX PER PHARMACY IV NR (20:00)
[2022-01-04] MEDS ORDERED: AMINO ACID INFUSION IN D10W 1,000 ML IV NR (20:00)
[2022-01-04] MEDS: NOREPINEPHRINE 8 MG/250ML KIT 250 ML IV SCH (21:30)
[2022-01-04] MEDS: BUMETANIDE INJECTION 12.5 MG in GIVE UN-DILUTED 0 ML IV SCH (21:30)
[2022-01-04] MEDS: ATORVASTATIN 20 MG TAB PO SCH (21:39)
[2022-01-05] VITALS (60 sets, daily range): BP systolic 131–184; BP diastolic 53–104
[2022-01-05 04:42] LABS: Basophils # (auto) 0.1 10 ^3/uL (0-0.2); Basophils % (auto) 1.4 % (0.0-2.0); Eosinophils # (auto) 0.4 10 ^3/uL (0-0.8); Eosinophils % (auto) 4.4 % (0.0-7.0); Hematocrit 32.3 % (36.0-46.0); Hemoglobin 11.3 g/dL (12.2-16.2); Lymphocytes % (auto) 20.5 % (10.0-50.0); Mean Corpuscular Hemoglobin 28.4 pg (28.0-32.0); Mean Corpuscular Volume 81.3 fL (80.0-100.0); Monocytes # (auto) 1.2 10 ^3/uL (0-1.3); Monocytes % (auto) 12.3 % (0.0-12.0); Neutrophils # (auto) 6.1 10 ^3/uL (1.6-8.6); Neutrophils % (auto) 61.4 % (37.0-80.0); Red Blood Cells 3.98 10^6/uL (4.0-5.20); White Blood Cell 9.9 10^3/uL (4.4-10.8)
[2022-01-05 04:54] LABS: Calcium 8.7 mg/dL (8.5-10.1); Potassium 3.4 mmol/L (3.5-5.1)
[2022-01-05] MEDS: hydrALAZINE HCL 20 MG/ML VL IV PRN ×2 (05:09→17:57)
[2022-01-05] MEDS: LINEZOLID 600MG/300ML 300 ML IV SCH ×2 (05:09→17:27)
[2022-01-05] MEDS: ACCU-CHEK COMFORT CURVE STRIP VI SCH ×5 (05:36→23:40)
[2022-01-05] MEDS: InsuLIN REG 1unit/0.01ml Soln (100units/ml) SC SCH ×5 (05:36→23:41)
[2022-01-05] MEDS ORDERED: POTASSIUM CHL 20MEQ/100ML 100 ML IV ONE (08:30)
[2022-01-05] MEDS: BUMETANIDE INJECTION 12.5 MG in GIVE UN-DILUTED 0 ML IV SCH (09:15)
[2022-01-05] MEDS: GABAPENTIN 300 MG CAP PO SCH ×2 (09:21→22:31)
[2022-01-05] MEDS: ATENOLOL 50 MG TAB PO SCH (09:21)
[2022-01-05] MEDS: HEPARIN SODIUM (PORCINE) 5000 UNITS/ML 1ML VIAL SC SCH ×2 (09:22→22:43)
[2022-01-05] MEDS: VENLAFAXINE HCL 37.5mg XR cap PO SCH (09:23)
[2022-01-05] MEDS: POTASSIUM CHL 10 Meq TABLET PO SCH (09:23)
[2022-01-05] MEDS: FENOFIBRATE 145 MG PO SCH (09:28)
[2022-01-05] MEDS: MEROPENEM 500MG IVPB 50 ML IV SCH ×2 (09:31→22:31)
[2022-01-05] MEDS: amLODIPine BESYLATE 5 MG TAB PO SCH (10:00)
[2022-01-05] MEDS: FAMOTIDINE (10MG/ML) 2ML VL IV SCH (10:00)
[2022-01-05] MEDS: POTASSIUM CHL 20MEQ/100ML 100 ML IV SCH ×2 (13:15→13:42)
[2022-01-05] MEDS ORDERED: AMINO ACID INFUSION IN D10W 1,000 ML IV NR (20:00)
[2022-01-05] MEDS ORDERED: AMINO ACID INFUSION IN D10W 2,000 ML IV NR (20:00)
[2022-01-05] MEDS: PROPOFOL 100 ML IV SCH (20:31)
[2022-01-05] MEDS: NOREPINEPHRINE 8 MG/250ML KIT 250 ML IV SCH (21:15)
[2022-01-05] MEDS: ATORVASTATIN 20 MG TAB PO SCH (22:31)
[2022-01-06] VITALS (68 sets, daily range): BP systolic 120–182; BP diastolic 49–77
[2022-01-06] MEDS: PROPOFOL 100 ML IV SCH (00:45)
[2022-01-06] MEDS: hydrALAZINE HCL 20 MG/ML VL IV PRN ×2 (02:00→09:53)
[2022-01-06 04:30] LABS: Basophils # (auto) 0.1 10 ^3/uL (0-0.2); Basophils % (auto) 1.3 % (0.0-2.0); Eosinophils # (auto) 0.4 10 ^3/uL (0-0.8); Eosinophils % (auto) 3.4 % (0.0-7.0); Hematocrit 32.9 % (36.0-46.0); Hemoglobin 11.2 g/dL (12.2-16.2); Lymphocytes # (auto) 2.3 10 ^3/uL (0.4-5.4); Lymphocytes % (auto) 19.9 % (10.0-50.0); Mean Corpuscular Hemoglobin 27.5 pg (28.0-32.0); Mean Corpuscular Hgb Conc. 33.9 g/dL (32.0-36.0); Monocytes % (auto) 8.9 % (0.0-12.0); Neutrophils # (auto) 7.5 10 ^3/uL (1.6-8.6); Neutrophils % (auto) 66.5 % (37.0-80.0); Nucleated Red Blood Cells % 0.1 %; Red Blood Cells 4.07 10^6/uL (4.0-5.20); Red Cell Distribution Width 15.6 % (11.8-14.3); White Blood Cell 11.4 10^3/uL (4.4-10.8)
[2022-01-06 04:49] LABS: Potassium 3.6 mmol/L (3.5-5.1)
[2022-01-06 04:55] LABS: Albumin 2.1 g/dL (3.4-5.0); BUN/Creatinine Ratio 13.2; Calcium 8.5 mg/dL (8.5-10.1); Magnesium 1.8 mg/dL (1.6-2.6)
[2022-01-06 04:57] LABS: Bilirubin, Total 0.4 mg/dL (0.2-1.0); Phosphorus 3.2 mg/dL (2.5-4.90); Total Protein 5.6 g/dL (6.4-8.2)
[2022-01-06] MEDS: ACCU-CHEK COMFORT CURVE STRIP VI SCH ×3 (05:53→17:30)
[2022-01-06] MEDS: LINEZOLID 600MG/300ML 300 ML IV SCH ×2 (06:29→17:26)
[2022-01-06] MEDS: InsuLIN REG 1unit/0.01ml Soln (100units/ml) SC SCH ×3 (06:37→17:29)
[2022-01-06] MEDS: BUMETANIDE INJECTION 12.5 MG in GIVE UN-DILUTED 0 ML IV SCH (09:43)
[2022-01-06] MEDS: MEROPENEM 500MG IVPB 50 ML IV SCH ×2 (09:43→22:30)
[2022-01-06] MEDS: FENOFIBRATE 145 MG PO SCH (09:43)
[2022-01-06] MEDS: amLODIPine BESYLATE 5 MG TAB PO SCH (09:44)
[2022-01-06] MEDS: VENLAFAXINE HCL 37.5mg XR cap PO SCH (09:44)
[2022-01-06] MEDS: ATENOLOL 50 MG TAB PO SCH (09:45)
[2022-01-06] MEDS: POTASSIUM CHL 10 Meq TABLET PO SCH (09:45)
[2022-01-06] MEDS: GABAPENTIN 300 MG CAP PO SCH ×2 (09:45→22:30)
[2022-01-06] MEDS: HEPARIN SODIUM (PORCINE) 5000 UNITS/ML 1ML VIAL SC SCH ×2 (09:46→22:13)
[2022-01-06] MEDS ORDERED: EPINEPHrine HCL 0.5 ML NEB ONE (12:34)
[2022-01-06] MEDS ORDERED: AMINO ACID INFUSION IN D10W 2,000 ML IV NR (20:00)
[2022-01-06] MEDS: NOREPINEPHRINE 8 MG/250ML KIT 250 ML IV SCH (21:30)
[2022-01-06] MEDS: ATORVASTATIN 20 MG TAB PO SCH (22:30)
[2022-01-07] VITALS (24 sets, daily range): BP systolic 125–168; BP diastolic 53–76
[2022-01-07] MEDS: ACCU-CHEK COMFORT CURVE STRIP VI SCH ×5 (00:30→23:30)
[2022-01-07] MEDS: InsuLIN REG 1unit/0.01ml Soln (100units/ml) SC SCH ×4 (00:40→17:25)
[2022-01-07 04:08] LABS: Albumin 2.1 g/dL (3.4-5.0); BUN/Creatinine Ratio 13.6; Calcium 8.5 mg/dL (8.5-10.1); Magnesium 1.8 mg/dL (1.6-2.6); Potassium 4.1 mmol/L (3.5-5.1)
[2022-01-07 04:11] LABS: Bilirubin, Total 0.4 mg/dL (0.2-1.0); Phosphorus 3.9 mg/dL (2.5-4.90); Total Protein 5.7 g/dL (6.4-8.2)
[2022-01-07] MEDS: hydrALAZINE HCL 20 MG/ML VL IV PRN (05:40)
[2022-01-07] MEDS: LINEZOLID 600MG/300ML 300 ML IV SCH ×2 (05:51→17:24)
[2022-01-07] MEDS: BUMETANIDE INJECTION 12.5 MG in GIVE UN-DILUTED 0 ML IV SCH (09:15)
[2022-01-07] MEDS: ATENOLOL 50 MG TAB PO SCH (09:23)
[2022-01-07] MEDS: amLODIPine BESYLATE 5 MG TAB PO SCH (09:24)
[2022-01-07] MEDS: HEPARIN SODIUM (PORCINE) 5000 UNITS/ML 1ML VIAL SC SCH ×2 (09:24→21:55)
[2022-01-07] MEDS: MEROPENEM 500MG IVPB 50 ML IV SCH ×2 (09:25→21:50)
[2022-01-07] MEDS: VENLAFAXINE HCL 37.5mg XR cap PO SCH (09:26)
[2022-01-07] MEDS: FAMOTIDINE (10MG/ML) 2ML VL IV SCH (09:26)
[2022-01-07] MEDS: GABAPENTIN 300 MG CAP PO SCH ×2 (09:27→21:50)
[2022-01-07] MEDS: FENOFIBRATE 145 MG PO SCH (09:27)
[2022-01-07] MEDS: POTASSIUM CHL 10 Meq TABLET PO SCH (09:27)
[2022-01-07] MEDS ORDERED: AMINO ACID INFUSION IN D10W 2,000 ML IV NR (20:00)
[2022-01-07] MEDS: NOREPINEPHRINE 8 MG/250ML KIT 250 ML IV SCH (20:20)
[2022-01-07] MEDS: ATORVASTATIN 20 MG TAB PO SCH (21:50)
[2022-01-08] VITALS (22 sets, daily range): BP systolic 120–171; BP diastolic 52–81
[2022-01-08] MEDS: InsuLIN REG 1unit/0.01ml Soln (100units/ml) SC SCH ×5 (00:40→23:18)
[2022-01-08 04:14] LABS: Magnesium 1.6 mg/dL (1.6-2.6); Potassium 3.4 mmol/L (3.5-5.1)
[2022-01-08 04:21] LABS: BUN/Creatinine Ratio 14.6; Bilirubin, Total 0.5 mg/dL (0.2-1.0); Calcium 8.4 mg/dL (8.5-10.1); Total Protein 5.5 g/dL (6.4-8.2)
[2022-01-08] MEDS: hydrALAZINE HCL 20 MG/ML VL IV PRN ×2 (04:41→22:07)
[2022-01-08] MEDS: ACCU-CHEK COMFORT CURVE STRIP VI SCH ×4 (05:23→23:18)
[2022-01-08] MEDS: LINEZOLID 600MG/300ML 300 ML IV SCH (05:23)
[2022-01-08] MEDS: ATENOLOL 50 MG TAB PO SCH (10:00)
[2022-01-08] MEDS ORDERED: POTASSIUM EFFERVESENT TAB 25 MEQ GT SCH (10:00)
[2022-01-08] MEDS: FENOFIBRATE 145 MG PO SCH (10:00)
[2022-01-08] MEDS: VENLAFAXINE HCL 37.5mg XR cap PO SCH (10:00)
[2022-01-08] MEDS ORDERED: MAGNESIUM SULFATE 1GM/100ML 100 ML IV ONE (10:45)
[2022-01-08] MEDS: MEROPENEM 500MG IVPB 50 ML IV SCH (12:16)
[2022-01-08] MEDS: amLODIPine BESYLATE 5 MG TAB PO SCH (12:17)
[2022-01-08] MEDS: GABAPENTIN 300 MG CAP PO SCH ×2 (12:17→21:17)
[2022-01-08] MEDS: HEPARIN SODIUM (PORCINE) 5000 UNITS/ML 1ML VIAL SC SCH ×2 (12:23→21:27)
[2022-01-08] MEDS ORDERED: FLUCONAZOLE 200MG/100ML 100 ML IV ONE (12:45)
[2022-01-08] MEDS: AMINO ACID INFUSION IN D10W 1,000 ML IV SCH (20:00)
[2022-01-08] MEDS ORDERED: AMINO ACID INFUSION IN D10W 2,000 ML IV NR (20:00)
[2022-01-08] MEDS: NOREPINEPHRINE 8 MG/250ML KIT 250 ML IV SCH (20:22)
[2022-01-08] MEDS: ATORVASTATIN 20 MG TAB PO SCH (21:17)
[2022-01-09] VITALS (11 sets, daily range): BP systolic 117–156; BP diastolic 46–76
[2022-01-09 02:31] LABS: Basophils # (auto) 0.1 10 ^3/uL (0-0.2); Basophils % (auto) 0.8 % (0.0-2.0); Eosinophils # (auto) 0.3 10 ^3/uL (0-0.8); Eosinophils % (auto) 2.8 % (0.0-7.0); Hemoglobin 10.6 g/dL (12.2-16.2); Lymphocytes # (auto) 1.6 10 ^3/uL (0.4-5.4); Lymphocytes % (auto) 14.8 % (10.0-50.0); Mean Corpuscular Hgb Conc. 33.1 g/dL (32.0-36.0); Mean Corpuscular Volume 81.8 fL (80.0-100.0); Monocytes # (auto) 1.1 10 ^3/uL (0-1.3); Monocytes % (auto) 10.3 % (0.0-12.0); Neutrophils % (auto) 71.3 % (37.0-80.0); Nucleated Red Blood Cells % 0.1 %; Red Blood Cells 3.92 10^6/uL (4.0-5.20); Red Cell Distribution Width 15.7 % (11.8-14.3); White Blood Cell 11.1 10^3/uL (4.4-10.8)
[2022-01-09 04:59] LABS: Albumin 2.1 g/dL (3.4-5.0); Calcium 8.4 mg/dL (8.5-10.1); Magnesium 2.1 mg/dL (1.6-2.6); Potassium 3.4 mmol/L (3.5-5.1)
[2022-01-09 05:02] LABS: BUN/Creatinine Ratio 16.5; Bilirubin, Total 0.3 mg/dL (0.2-1.0); Phosphorus 3.8 mg/dL (2.5-4.90); Total Protein 5.7 g/dL (6.4-8.2)
[2022-01-09] MEDS: InsuLIN REG 1unit/0.01ml Soln (100units/ml) SC SCH ×3 (05:12→18:00)
[2022-01-09] MEDS: ACCU-CHEK COMFORT CURVE STRIP VI SCH ×3 (05:12→18:00)
[2022-01-09] MEDS ORDERED: POTASSIUM EFFERVESENT TAB 25 MEQ GT ONE (09:15)
[2022-01-09] MEDS: FAMOTIDINE (10MG/ML) 2ML VL IV SCH (09:35)
[2022-01-09] MEDS: FLUCONAZOLE 200MG/100ML 100 ML IV SCH (12:11)
[2022-01-09] MEDS: FENOFIBRATE 145 MG PO SCH (12:11)
[2022-01-09] MEDS: VENLAFAXINE HCL 37.5mg XR cap PO SCH (12:12)
[2022-01-09] MEDS: GABAPENTIN 300 MG CAP PO SCH (12:12)
[2022-01-09] MEDS: amLODIPine BESYLATE 5 MG TAB PO SCH (12:13)
[2022-01-09] MEDS: ATENOLOL 50 MG TAB PO SCH (12:14)
[2022-01-09] MEDS: HEPARIN SODIUM (PORCINE) 5000 UNITS/ML 1ML VIAL SC SCH ×2 (12:16→21:36)
[2022-01-09] MEDS: NOREPINEPHRINE 8 MG/250ML KIT 250 ML IV SCH (19:43)
[2022-01-09] MEDS: AMINO ACID INFUSION IN D10W 1,000 ML IV SCH (19:43)
[2022-01-09] MEDS: ATORVASTATIN 20 MG TAB PO SCH (21:35)
[2022-01-10 05:00] VITALS: BP 151/58
[2022-01-10] MEDS: InsuLIN REG 1unit/0.01ml Soln (100units/ml) SC SCH ×4 (05:03→17:58)
[2022-01-10] MEDS: ACCU-CHEK COMFORT CURVE STRIP VI SCH ×4 (05:03→17:50)
[2022-01-10 06:55] LABS: Potassium 3.6 mmol/L (3.5-5.1)
[2022-01-10 06:59] LABS: BUN/Creatinine Ratio 17.4; Calcium 8.7 mg/dL (8.5-10.1)
[2022-01-10 07:18] LABS: Bilirubin, Total 0.4 mg/dL (0.2-1.0); Phosphorus 3.8 mg/dL (2.5-4.90); Total Protein 5.4 g/dL (6.4-8.2)
[2022-01-10 09:00] VITALS: BP 142/69
[2022-01-10] MEDS: FENOFIBRATE 145 MG PO SCH (10:00)
[2022-01-10] MEDS: VENLAFAXINE HCL 37.5mg XR cap PO SCH (10:45)
[2022-01-10] MEDS: FLUCONAZOLE 200MG/100ML 100 ML IV SCH (10:45)
[2022-01-10] MEDS: amLODIPine BESYLATE 5 MG TAB PO SCH (10:46)
[2022-01-10] MEDS: ATENOLOL 50 MG TAB PO SCH (10:46)
[2022-01-10] MEDS: HEPARIN SODIUM (PORCINE) 5000 UNITS/ML 1ML VIAL SC SCH ×2 (10:47→21:41)
[2022-01-10 13:00] VITALS: BP 165/66
[2022-01-10 16:54] VITALS: BP 150/58
[2022-01-10] MEDS ORDERED: FUROSEMIDE 40 MG/4 ML VIAL IV ONE (18:30)
[2022-01-10] MEDS: AMINO ACID INFUSION IN D10W 1,000 ML IV SCH (20:40)
[2022-01-10] MEDS: ATORVASTATIN 20 MG TAB PO SCH (21:26)
[2022-01-10 22:00] VITALS: BP 134/62
[2022-01-11] MEDS: InsuLIN REG 1unit/0.01ml Soln (100units/ml) SC SCH ×4 (00:09→18:08)
[2022-01-11] MEDS: ACCU-CHEK COMFORT CURVE STRIP VI SCH ×4 (00:14→18:07)
[2022-01-11 05:00] VITALS: BP 161/66
[2022-01-11 05:15] LABS: BUN/Creatinine Ratio 18.2; Calcium 8.6 mg/dL (8.5-10.1); Magnesium 1.9 mg/dL (1.6-2.6); Phosphorus 3.9 mg/dL (2.5-4.90); Potassium 3.6 mmol/L (3.5-5.1)
[2022-01-11 09:00] VITALS: BP 149/67
[2022-01-11] MEDS: FAMOTIDINE (10MG/ML) 2ML VL IV SCH (10:00)
[2022-01-11] MEDS: FLUCONAZOLE 200MG/100ML 100 ML IV SCH (11:54)
[2022-01-11] MEDS: VENLAFAXINE HCL 37.5mg XR cap PO SCH (12:07)
[2022-01-11] MEDS: FUROSEMIDE 40 MG/4 ML VIAL IV SCH (12:07)
[2022-01-11] MEDS: amLODIPine BESYLATE 5 MG TAB PO SCH (12:08)
[2022-01-11] MEDS: ATENOLOL 50 MG TAB PO SCH (12:09)
[2022-01-11] MEDS: HEPARIN SODIUM (PORCINE) 5000 UNITS/ML 1ML VIAL SC SCH ×2 (12:29→22:03)
[2022-01-11] MEDS: FENOFIBRATE 145 MG PO SCH (12:31)
[2022-01-11 13:06] VITALS: BP 149/75
[2022-01-11 17:00] VITALS: BP 141/69
[2022-01-11] MEDS ORDERED: CLINIMIX PER PHARMACY IV NR (20:00)
[2022-01-11 22:00] VITALS: BP 152/59
[2022-01-11] MEDS: AMINO ACID INFUSION IN D10W 1,000 ML IV SCH (22:02)
[2022-01-11] MEDS: ATORVASTATIN 20 MG TAB PO SCH (22:03)
[2022-01-11 22:15] VITALS: BP 142/64
[2022-01-12] MEDS: ACCU-CHEK COMFORT CURVE STRIP VI SCH ×4 (00:22→18:24)
[2022-01-12] MEDS: InsuLIN REG 1unit/0.01ml Soln (100units/ml) SC SCH ×4 (00:31→18:32)
[2022-01-12] MEDS: hydrALAZINE HCL 20 MG/ML VL IV PRN (04:54)
[2022-01-12 05:00] VITALS: BP_SYST 152; BP_SYST 157; BP_DIAS 59; BP_DIAS 64
[2022-01-12 06:02] LABS: Potassium 3.6 mmol/L (3.5-5.1)
[2022-01-12 06:08] LABS: Albumin 2.1 g/dL (3.4-5.0); BUN/Creatinine Ratio 19.6; Calcium 8.6 mg/dL (8.5-10.1)
[2022-01-12 06:17] LABS: Bilirubin, Total 0.3 mg/dL (0.2-1.0); Phosphorus 4.4 mg/dL (2.5-4.90); Total Protein 5.8 g/dL (6.4-8.2)
[2022-01-12 09:00] VITALS: BP 152/63
[2022-01-12] MEDS: FUROSEMIDE 40 MG/4 ML VIAL IV SCH (10:46)
[2022-01-12] MEDS: ATENOLOL 50 MG TAB PO SCH (10:47)
[2022-01-12] MEDS: FLUCONAZOLE 200MG/100ML 100 ML IV SCH (10:47)
[2022-01-12] MEDS: amLODIPine BESYLATE 5 MG TAB PO SCH (10:47)
[2022-01-12] MEDS: FENOFIBRATE 145 MG PO SCH (10:47)
[2022-01-12] MEDS: VENLAFAXINE HCL 37.5mg XR cap PO SCH (10:48)
[2022-01-12] MEDS: HEPARIN SODIUM (PORCINE) 5000 UNITS/ML 1ML VIAL SC SCH ×2 (11:07→21:28)
[2022-01-12 13:00] VITALS: BP 153/72
[2022-01-12 17:04] VITALS: BP 135/54
[2022-01-12] MEDS ORDERED: AMINO ACID INFUSION IN D10W 1,000 ML IV NR (20:00)
[2022-01-12] MEDS: ATORVASTATIN 20 MG TAB PO SCH (21:28)
[2022-01-12 21:33] VITALS: BP 144/58
[2022-01-13] MEDS: ACCU-CHEK COMFORT CURVE STRIP VI SCH ×4 (00:05→18:16)
[2022-01-13] MEDS: InsuLIN REG 1unit/0.01ml Soln (100units/ml) SC SCH ×4 (00:07→18:16)
[2022-01-13 04:48] VITALS: BP 163/55
[2022-01-13] MEDS: hydrALAZINE HCL 20 MG/ML VL IV PRN (05:32)
[2022-01-13 09:00] VITALS: BP 150/54
[2022-01-13] MEDS: FENOFIBRATE 145 MG PO SCH (10:00)
[2022-01-13 10:29] LABS: Calcium 8.6 mg/dL (8.5-10.1); Potassium 3.9 mmol/L (3.5-5.1)
[2022-01-13 10:31] LABS: BUN/Creatinine Ratio 20.9; Calcium 8.5 mg/dL (8.5-10.1); Magnesium 2.2 mg/dL (1.6-2.6); Phosphorus 4.8 mg/dL (2.5-4.90); Potassium 3.9 mmol/L (3.5-5.1)
[2022-01-13 10:32] LABS: BUN/Creatinine Ratio 21.3; Bilirubin, Total 0.3 mg/dL (0.2-1.0); Phosphorus 4.9 mg/dL (2.5-4.90); Total Protein 5.9 g/dL (6.4-8.2)
[2022-01-13] MEDS: amLODIPine BESYLATE 5 MG TAB PO SCH (10:56)
[2022-01-13] MEDS: FLUCONAZOLE 200MG/100ML 100 ML IV SCH (10:56)
[2022-01-13] MEDS: ATENOLOL 50 MG TAB PO SCH (10:57)
[2022-01-13] MEDS: FAMOTIDINE (10MG/ML) 2ML VL IV SCH (11:02)
[2022-01-13] MEDS: FUROSEMIDE 40 MG/4 ML VIAL IV SCH (11:02)
[2022-01-13] MEDS: HEPARIN SODIUM (PORCINE) 5000 UNITS/ML 1ML VIAL SC SCH ×2 (11:04→22:25)
[2022-01-13] MEDS: VENLAFAXINE HCL 37.5mg XR cap PO SCH (11:09)
[2022-01-13 13:00] VITALS: BP 137/47
[2022-01-13 17:00] VITALS: BP 111/54
[2022-01-13] MEDS ORDERED: AMINO ACID INFUSION IN D10W 1,000 ML IV NR (20:00)
[2022-01-13 22:00] VITALS: BP 148/61
[2022-01-13] MEDS: ATORVASTATIN 20 MG TAB PO SCH (22:24)
[2022-01-14] MEDS: ACCU-CHEK COMFORT CURVE STRIP VI SCH ×4 (00:01→17:33)
[2022-01-14] MEDS: InsuLIN REG 1unit/0.01ml Soln (100units/ml) SC SCH ×4 (00:05→17:34)
[2022-01-14 04:59] VITALS: BP 122/54
[2022-01-14 05:49] LABS: Potassium 3.6 mmol/L (3.5-5.1)
[2022-01-14 05:59] LABS: BUN/Creatinine Ratio 20.4; Calcium 8.4 mg/dL (8.5-10.1); Magnesium 1.8 mg/dL (1.6-2.6)
[2022-01-14 06:01] LABS: Bilirubin, Total 0.3 mg/dL (0.2-1.0); Phosphorus 4.3 mg/dL (2.5-4.90); Total Protein 5.6 g/dL (6.4-8.2)
[2022-01-14 09:00] VITALS: BP 175/60
[2022-01-14] MEDS: hydrALAZINE HCL 20 MG/ML VL IV PRN (09:00)
[2022-01-14] MEDS: FENOFIBRATE 145 MG PO SCH (10:00)
[2022-01-14] MEDS: FLUCONAZOLE 200MG/100ML 100 ML IV SCH (10:43)
[2022-01-14] MEDS: VENLAFAXINE HCL 37.5mg XR cap PO SCH (10:45)
[2022-01-14] MEDS: amLODIPine BESYLATE 5 MG TAB PO SCH (10:46)
[2022-01-14] MEDS: ATENOLOL 50 MG TAB PO SCH (10:47)
[2022-01-14] MEDS: FUROSEMIDE 40 MG/4 ML VIAL IV SCH (10:48)
[2022-01-14] MEDS: HEPARIN SODIUM (PORCINE) 5000 UNITS/ML 1ML VIAL SC SCH (10:50)
[2022-01-14 13:00] VITALS: BP 149/55
[2022-01-14 17:07] VITALS: BP 134/65
[2022-01-14 17:53] VITALS: BP 134/65
[2022-01-14] MEDS ORDERED: AMINO ACID INFUSION IN D10W 1,000 ML IV SCH (20:00)
== END 2022-01-14 20:30 | disposition hospice, home (50) | DRG 720 ==
LOC: EDBD 16:59 → ER 16:59 → OVERFLOW 23:55 → ICU CENTRL 12-25 06:07 → ICU WEST 12-30 22:05 → CENTRAL 01-09 05:37 → TELE-CENTR 01-09 19:31
PROVIDERS: ADMIT Nurse Practitioner Family; ATTEND Family Medicine
PROC: 5A1955Z Respiratory Ventilation, Greater than 96 Consecutive Hours (ICD-10-PCS; principal; 2021-12-24)
PROC: 0BH17EZ Insertion of Endotracheal Airway into Trachea, Via Natural or Artificial Opening (ICD-10-PCS; 2021-12-24)
DX: A41.9 Sepsis, unspecified organism (principal); J96.01 Acute respiratory failure with hypoxia; N17.0 Acute kidney failure with tubular necrosis; J69.0 Pneumonitis due to inhalation of food and vomit; R65.21 Severe sepsis with septic shock; G92.8 Other toxic encephalopathy; D75.839 Thrombocytosis, unspecified; E11.22 Type 2 diabetes mellitus with diabetic chronic kidney disease; Z66 Do not resuscitate; Z20.822 Contact with and (suspected) exposure to COVID-19; E44.0 Moderate protein-calorie malnutrition; N18.4 Chronic kidney disease, stage 4 (severe); E88.09 Other disorders of plasma-protein metabolism, not elsewhere classified; E87.5 Hyperkalemia; F31.9 Bipolar disorder, unspecified; E66.01 Morbid (severe) obesity due to excess calories; J98.11 Atelectasis; E87.6 Hypokalemia; I50.9 Heart failure, unspecified; E11.65 Type 2 diabetes mellitus with hyperglycemia; I25.10 Atherosclerotic heart disease of native coronary artery without angina pectoris; J45.909 Unspecified asthma, uncomplicated; E78.5 Hyperlipidemia, unspecified; I13.0 Hypertensive heart and chronic kidney disease with heart failure and stage 1 through stage 4 chronic kidney disease, or unspecified chronic kidney disease; I25.2 Old myocardial infarction; Z68.43 Body mass index [BMI] 50.0-59.9, adult
CPT/HCPCS: 36415; 36600; 70450; 71045; 80048; 80053; 80069; 80076; 80307; 81001; 82140; 82570; 82805; 82962; 83036; 83605; 83735; 83880; 83935; 84100; 84156; 84300; 84443; 84478; 84484; 84550; 85025; 87040; 87070; 87077; 87081; 87086; 87088; 87186; 87205; 87340; 93005; 93970; 94003; 96365; 96367; 96375; 99291; G0378; J0696; J1450; J1815; J2185; J2250; J2704; J3480; J3490; P9047